=== PATIENT | female | born 2000 | race Asian ===

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

== ENCOUNTER 2019-08-05 21:20 | Emergency (ER) | payer SELFPAY ==
[~2019-08-05] VITALS: Ht 154.9 cm; Wt 72.7 kg
[2019-08-05] MEDS ORDERED: LIDOCAINE 1% 10 ML VIAL INJ ONE (23:15)
[2019-08-05] MEDS ORDERED: LIDOCAINE 2% 5 ML JELLY TP ONE (23:15)
[2019-08-06 01:20] VITALS: BP 124/79
== END 2019-08-06 01:42 | disposition home or self-care (01) ==
LOC: EMS 21:21
DX: S02.5XXA Fracture of tooth (traumatic), initial encounter for closed fracture (principal); S01.511A Laceration without foreign body of lip, initial encounter; W18.39XA Other fall on same level, initial encounter; Y93.89 Activity, other specified; Y92.89 Other specified places as the place of occurrence of the external cause; Y99.8 Other external cause status
CPT/HCPCS: 12011; 99283; J3490